=== PATIENT | male | born 1970 | race Hispanic/Latino ===

== ENCOUNTER 2022-01-05 02:03 | Emergency (ER) | payer BC, OTHER ==
[~2022-01-05] VITALS: Ht 170.2 cm; Wt 97.5 kg
[2022-01-05] MEDS ORDERED: NAPROSYN500 MG PO (02:13)
[2022-01-05] MEDS ORDERED: KETOROLAC TROMETHAMINE 60 MG/2 ML VIAL IM ONE (02:15)
[2022-01-05] MEDS ORDERED: KETOROLAC TROMETHAMINE 60 MG/2 ML VIAL ONE (02:26)
[2022-01-05 02:56] VITALS: BP 134/81
== END 2022-01-05 03:00 | disposition home or self-care (01) ==
LOC: ER 02:11
DX: S53.491A Other sprain of right elbow, initial encounter (principal); M25.521 Pain in right elbow; X50.1XXA Overexertion from prolonged static or awkward postures, initial encounter; Y92.89 Other specified places as the place of occurrence of the external cause
CPT/HCPCS: 99282; J1885